=== PATIENT | female | born 1995 | race African-American/Black ===

== ENCOUNTER 2020-11-09 13:03 | Outpatient (CLI) | payer OTHER, SELFPAY ==
--- NOTE | 2020-11-09 14:27 | PCRCNOTE ---
Unable to complete methacholine testing due to reactivity to diluent with decreased FEV1 at 13%. Pt was given neb treatment with albuterol and improved spirometry before leaving. tried to contact Srinivas bustillo dr, with no success. faxed at [phone].
== END 2020-11-09 13:04 | disposition home or self-care (01) ==
PROVIDERS: Visit Provider Nurse Practitioner
DX: J45.909 Unspecified asthma, uncomplicated (principal)
CPT/HCPCS: 94070; J7674